=== PATIENT | female | born 1940 | race Caucasian/White ===

== ENCOUNTER 2021-08-08 15:55 | Inpatient (IN) ==
[2021-08-08] MEDS ORDERED: *HR* HYDROmorphone PF 0.5 MG/0.5 ML SYRINGE IVP PRN (17:35)
[2021-08-08] MEDS ORDERED: *HR* Metoprolol 5 MG/5 ML VIAL IVP PRN (17:35)
[2021-08-08] MEDS ORDERED: Naloxone 0.4 MG/ML INJ IVP PRN ×2 (17:35→20:12)
[2021-08-08] MEDS ORDERED: Nitroglycerin 0.4 MG TAB.SUBL SL PRN (17:35)
[2021-08-08] MEDS ORDERED: Ondansetron 4 MG/2 ML VIAL IVP PRN ×2 (17:35→20:12)
[2021-08-08] MEDS ORDERED: Albuterol 2.5 MG/3 ML NEBULIZER IH PRN (17:35)
[2021-08-08] MEDS ORDERED: *HR* FentaNYL (PF) 100 MCG/2 ML VIAL ONE (17:50)
[2021-08-08] MEDS ORDERED: *HR* Propofol 200 MG/20 ML VIAL IVP ONE (17:50)
[2021-08-08] MEDS ORDERED: Lidocaine -MPF 4% 5 ML AMPUL ONE (17:50)
[2021-08-08] MEDS ORDERED: *HR* Rocuronium Bromide 50 MG/5 ML VIAL ONE (17:50)
[2021-08-08] MEDS ORDERED: Ondansetron 4 MG/2 ML VIAL ONE (17:50)
[2021-08-08] MEDS ORDERED: Lidocaine -MPF 2% 2 ML VIAL ONE (17:50)
[2021-08-08] MEDS ORDERED: ALPRAZolam 0.5 MG TABLET PO PRN (18:27)
[2021-08-08] MEDS ORDERED: MetroNIDAZOLE 500 MG/100 ML 500 MG/100 ML BAG IVPB ONE (18:52)
[2021-08-08] MEDS ORDERED: Famotidine 20 MG/2 ML VIAL IVP ONE (19:03)
[2021-08-08] MEDS ORDERED: Acetaminophen IV 1,000 MG/100 ML BAG IVPB ONE ×2 (19:04)
[2021-08-08] MEDS ORDERED: *HR* HYDROMORPHONE 2 MG/ML VIAL ONE (19:43)
[2021-08-08] MEDS ORDERED: Sugammadex Sodium 200 MG/2 ML VIAL IV ONE (19:44)
[2021-08-08] MEDS ORDERED: Morphine PCA 30 MG/ 30 ML 30 ML PCA.VIAL IVC PRN (21:22)
[2021-08-08] MEDS ORDERED: 0.9 % Sodium Chloride 1,000 ML IVC ONE (21:50)
[2021-08-08] MEDS: *HR* Heparin 5,000 UNIT/ML VIAL SQ SCH (22:10)
[2021-08-08] MEDS: Acetaminophen IV 1,000 MG/100 ML BAG IVPB SCH (23:40)
[2021-08-08] MEDS: 0.9 % Sodium Chloride 1,000 ML IVC SCH (23:40)
[2021-08-09] MEDS: MetroNIDAZOLE 500 MG/100 ML 500 MG/100 ML BAG IVPB SCH ×5 (00:03→23:39)
[2021-08-09 00:52] LABS: Hematocrit 34.9 % (35.3-44.9); Hemoglobin 11.4 g/dL (11.5-15.4); Mean Corpuscular HGB Conc 32.7 g/dL (31.6-35.5); Mean Corpuscular Hemoglobin 30.8 pg (28.0-33.3); Mean Corpuscular Volume 94.3 fL (83.0-100.0); Mean Platelet Volume 9.4 fL (9.4-12.4); Platelet Count 195 K/mcL (140-400); White Blood Count 11.6 K/mcL (4.3-11.1)
[2021-08-09 01:12] LABS: Alanine Aminotransferase 16 Units/L (7-52); Albumin 2.7 g/dL (3.5-5.7); Albumin/Globulin Ratio 1.4 (1.1-2.2); Alkaline Phosphatase 38 Units/L (34-104); Aspartate Amino Transferase 22 Units/L (13-39); BUN/Creatinine Ratio 33 (6-26); Bilirubin,Total 0.4 mg/dL (0.3-1.0); Blood Urea Nitrogen 25 mg/dL (8-23); Calcium 7.4 mg/dL (8.6-10.3); Carbon Dioxide 19 mEq/L (23-29); Chloride 111 mEq/L (98-107); Globulin 1.9 g/dL (2.4-3.5); Glucose 119 mg/dL (70-105); Magnesium 1.5 mg/dL (1.6-2.6); Osmolality,Calculated 288 (280-300); Phosphorous 2.5 mg/dL (2.7-4.5); Potassium 3.8 mEq/L (3.5-5.1); Sodium 136 mEq/L (136-145); Total Protein 4.6 g/dL (6.4-8.9); eGFR For African Americans > 60 (> 60); eGFR For Non-African Americans > 60 (> 60)
[2021-08-09 01:26] LABS: Lymphocytes # 0.7 K/mcL (0.6-4.6); Neutrophils # 10.9 K/mcL (1.6-8.9); Platelet Estimate Normal (Normal)
[2021-08-09] MEDS: *HR* Heparin 5,000 UNIT/ML VIAL SQ SCH ×2 (05:19→17:33)
[2021-08-09] MEDS: Acetaminophen IV 1,000 MG/100 ML BAG IVPB SCH ×3 (05:38→18:45)
[2021-08-09] MEDS: 0.9 % Sodium Chloride 1,000 ML IVC SCH ×3 (08:24→23:41)
[2021-08-09] MEDS: levoFLOXacin 750 MG/150 ML 750 MG/150 ML BAG IVPB SCH (08:24)
[2021-08-09] MEDS: Pantoprazole 40 MG VIAL IVP SCH (08:30)
[2021-08-09] MEDS ORDERED: Naloxone 0.4 MG/ML INJ IVP PRN (08:33)
[2021-08-09] MEDS ORDERED: NON-FORMULARY MEDICATION 1 EACH EACH (Ezetimibe [Zetia] 10 MG Tablet) PO SCH (09:00)
[2021-08-09] MEDS ORDERED: levoFLOXacin 500 MG/100 ML 500 MG/100 ML BAG IVPB SCH (09:00)
[2021-08-09] MEDS ORDERED: *HR* LORazepam 2 MG/ML VIAL IVP ONE (09:32)
[2021-08-09] MEDS ORDERED: Saliva Stimulant 44.3ml BOTTLE PO PRN (09:33)
[2021-08-09] MEDS ORDERED: Chloraseptic Spray 177 ML BOTTLE MM PRN (09:33)
[2021-08-09] MEDS ORDERED: Orphenadrine 60 MG/2 ML VIAL IVP PRN (09:35)
[2021-08-09] MEDS: *HR* Metoprolol 5 MG/5 ML VIAL IVP PRN ×2 (09:46→13:01)
[2021-08-09] MEDS: *HR* LORazepam 2 MG/ML VIAL IVP PRN (09:47)
[2021-08-09] MEDS: DilTIAZem 50 MG/50 ML IV.SOLN IVC SCH ×2 (10:35→15:26)
[2021-08-09] MEDS ORDERED: Perflutren Lipid Microsphere 1.3 ML in 0.9 % Sodium Chloride 8.7 ML IVP PRN (11:50)
[2021-08-09] MEDS: Ketorolac 30 MG/ML VIAL IVP SCH ×3 (11:51→23:39)
[2021-08-09 14:05] LABS: Hematocrit 35.4 % (35.3-44.9); Hemoglobin 11.6 g/dL (11.5-15.4); Mean Corpuscular HGB Conc 32.8 g/dL (31.6-35.5); Mean Corpuscular Hemoglobin 31.4 pg (28.0-33.3); Mean Corpuscular Volume 95.9 fL (83.0-100.0); Mean Platelet Volume 9.9 fL (9.4-12.4); Platelet Count 193 K/mcL (140-400); Red Blood Count 3.69 M/mcL (3.82-4.97); Red Cell Distribution Width 14.2 % (11.5-14.5); White Blood Count 10.4 K/mcL (4.3-11.1)
[2021-08-09 14:24] LABS: Alanine Aminotransferase 17 Units/L (7-52); Albumin 2.8 g/dL (3.5-5.7); Albumin/Globulin Ratio 1.3 (1.1-2.2); Alkaline Phosphatase 50 Units/L (34-104); Aspartate Amino Transferase 18 Units/L (13-39); BUN/Creatinine Ratio 34 (6-26); Bilirubin,Total 0.3 mg/dL (0.3-1.0); Blood Urea Nitrogen 23 mg/dL (8-23); Calcium 7.7 mg/dL (8.6-10.3); Carbon Dioxide 18 mEq/L (23-29); Chloride 113 mEq/L (98-107); Globulin 2.1 g/dL (2.4-3.5); Glucose 120 mg/dL (70-105); Osmolality,Calculated 289 (280-300); Potassium 3.6 mEq/L (3.5-5.1); Sodium 137 mEq/L (136-145); Total Protein 4.9 g/dL (6.4-8.9); eGFR For African Americans > 60 (> 60); eGFR For Non-African Americans > 60 (> 60)
[2021-08-09 14:44] LABS: Lymphocytes # 0.3 K/mcL (0.6-4.6); Monocytes # 0.1 K/mcL (0.0-1.3); Neutrophils # 9.9 K/mcL (1.6-8.9)
[2021-08-09 14:45] LABS: Platelet Estimate Normal (Normal); Poikilocytosis 1+ (Not Present)
[2021-08-10] MEDS: DilTIAZem 50 MG/50 ML IV.SOLN IVC SCH (00:24)
[2021-08-10] MEDS: Acetaminophen IV 1,000 MG/100 ML BAG IVPB SCH ×4 (01:27→20:14)
[2021-08-10 03:22] LABS: Hematocrit 33.6 % (35.3-44.9); Hemoglobin 11.2 g/dL (11.5-15.4); Mean Corpuscular HGB Conc 33.3 g/dL (31.6-35.5); Mean Corpuscular Hemoglobin 30.9 pg (28.0-33.3); Mean Corpuscular Volume 92.8 fL (83.0-100.0); Mean Platelet Volume 9.9 fL (9.4-12.4); Platelet Count 191 K/mcL (140-400); Red Blood Count 3.62 M/mcL (3.82-4.97); Red Cell Distribution Width 14.2 % (11.5-14.5); White Blood Count 13.1 K/mcL (4.3-11.1)
[2021-08-10 03:40] LABS: BUN/Creatinine Ratio 37 (6-26); Blood Urea Nitrogen 23 mg/dL (8-23); Calcium 7.8 mg/dL (8.6-10.3); Carbon Dioxide 17 mEq/L (23-29); Chloride 116 mEq/L (98-107); Glucose 111 mg/dL (70-105); Magnesium 2.3 mg/dL (1.6-2.6); Osmolality,Calculated 296 (280-300); Potassium 3.3 mEq/L (3.5-5.1); Sodium 141 mEq/L (136-145); eGFR For African Americans > 60 (> 60); eGFR For Non-African Americans > 60 (> 60)
[2021-08-10] MEDS ORDERED: *HR* Metoprolol 5 MG/5 ML VIAL IVP ONE (03:50)
[2021-08-10 04:09] LABS: Lymphocytes # 1.8 K/mcL (0.6-4.6); Monocytes # 0.3 K/mcL (0.0-1.3); Platelet Estimate Normal (Normal)
[2021-08-10] MEDS: Ketorolac 30 MG/ML VIAL IVP SCH ×3 (05:42→17:48)
[2021-08-10] MEDS: *HR* Heparin 5,000 UNIT/ML VIAL SQ SCH ×2 (05:43→17:48)
[2021-08-10] MEDS: MetroNIDAZOLE 500 MG/100 ML 500 MG/100 ML BAG IVPB SCH ×3 (05:43→17:47)
[2021-08-10] MEDS: 0.9 % Sodium Chloride 1,000 ML IVC SCH (07:34)
[2021-08-10] MEDS: levoFLOXacin 750 MG/150 ML 750 MG/150 ML BAG IVPB SCH (09:28)
[2021-08-10] MEDS: Pantoprazole 40 MG VIAL IVP SCH (09:28)
[2021-08-10] MEDS: Sodium Bicarbonate 75 MEQ in 0.45 % Sodium Chloride 1,000 ML IVC SCH (11:10)
[2021-08-10] MEDS: *HR* Metoprolol 5 MG/5 ML VIAL IVP PRN (12:52)
[2021-08-10] MEDS: *HR* Metoprolol 5 MG/5 ML VIAL IVP SCH ×2 (15:55→20:15)
[2021-08-10] MEDS: Ondansetron 4 MG/2 ML VIAL IVP PRN (16:46)
[2021-08-11] MEDS: Ketorolac 30 MG/ML VIAL IVP SCH ×5 (00:11→23:47)
[2021-08-11] MEDS: Ondansetron 4 MG/2 ML VIAL IVP PRN (00:11)
[2021-08-11] MEDS: *HR* Metoprolol 5 MG/5 ML VIAL IVP SCH ×5 (00:11→23:47)
[2021-08-11] MEDS: Acetaminophen IV 1,000 MG/100 ML BAG IVPB SCH ×5 (00:17→23:47)
[2021-08-11] MEDS: MetroNIDAZOLE 500 MG/100 ML 500 MG/100 ML BAG IVPB SCH ×5 (00:20→23:48)
[2021-08-11] MEDS: Sodium Bicarbonate 75 MEQ in 0.45 % Sodium Chloride 1,000 ML IVC SCH ×2 (00:31→20:32)
[2021-08-11 01:38] LABS: Basophils % 0.2 %; Hematocrit 36.9 % (35.3-44.9); Hemoglobin 12.4 g/dL (11.5-15.4); Immature Granulocytes % 0.7 % (0-4); Lymphocytes # 0.6 K/mcL (0.6-4.6); Lymphocytes % 2.9 %; Mean Corpuscular HGB Conc 33.6 g/dL (31.6-35.5); Mean Corpuscular Hemoglobin 31.6 pg (28.0-33.3); Mean Corpuscular Volume 93.9 fL (83.0-100.0); Monocytes # 0.8 K/mcL (0.0-1.3); Monocytes % 4.3 %; Platelet Count 245 K/mcL (140-400); Red Blood Count 3.93 M/mcL (3.82-4.97); Red Cell Distribution Width 14.5 % (11.5-14.5); Segmented Neutrophils % 91.9 %; White Blood Count 19.6 K/mcL (4.3-11.1)
[2021-08-11 02:07] LABS: BUN/Creatinine Ratio 33 (6-26); Blood Urea Nitrogen 20 mg/dL (8-23); Carbon Dioxide 18 mEq/L (23-29); Chloride 115 mEq/L (98-107); Glucose 129 mg/dL (70-105); Magnesium 2.1 mg/dL (1.6-2.6); Osmolality,Calculated 304 (280-300); Potassium 3.1 mEq/L (3.5-5.1); Sodium 145 mEq/L (136-145); eGFR For African Americans > 60 (> 60); eGFR For Non-African Americans > 60 (> 60)
[2021-08-11] MEDS: *HR* LORazepam 2 MG/ML VIAL IVP PRN (03:49)
[2021-08-11] MEDS: *HR* Heparin 5,000 UNIT/ML VIAL SQ SCH ×2 (05:44→17:51)
[2021-08-11] MEDS: Pantoprazole 40 MG VIAL IVP SCH (07:54)
[2021-08-11] MEDS: levoFLOXacin 750 MG/150 ML 750 MG/150 ML BAG IVPB SCH (07:54)
[2021-08-11] MEDS ORDERED: Iopamidol - 370 500 ML MLS IVP ONE (08:25)
[2021-08-11 15:20] LABS: Bilirubin,Urine Negative (Negative); Blood,Urine Small (Negative); Clarity,Urine Clear (Clear); Color,Urine Light-Yellow (Yellow); Glucose,Urine (UA) Normal (Normal); Ketones,Urine 80 mg/dL (Negative); Leukocyte Esterase,Urine Negative (Negative); Nitrite,Urine Negative (Negative); PH,Urine 6.5 pH Units (5.0-8.0); Protein,Urine Trace mg/dL (Neg-Trace); Specific Gravity,Urine > 1.030 (1.010-1.025); Urobilinogen,Urine Normal (Normal)
[2021-08-12 02:13] LABS: Basophils # 0.1 K/mcL (0.0-0.2); Basophils % 0.3 %; Eosinophils % 0.1 %; Hematocrit 37.1 % (35.3-44.9); Hemoglobin 12.5 g/dL (11.5-15.4); Immature Granulocytes % 1.7 % (0-4); Lymphocytes # 0.6 K/mcL (0.6-4.6); Lymphocytes % 3.1 %; Mean Corpuscular HGB Conc 33.7 g/dL (31.6-35.5); Mean Corpuscular Hemoglobin 31.3 pg (28.0-33.3); Mean Corpuscular Volume 92.8 fL (83.0-100.0); Mean Platelet Volume 9.6 fL (9.4-12.4); Monocytes # 1.7 K/mcL (0.0-1.3); Monocytes % 8.9 %; Neutrophils # 16.7 K/mcL (1.6-8.9); Platelet Count 253 K/mcL (140-400); Red Cell Distribution Width 14.6 % (11.5-14.5); Segmented Neutrophils % 85.9 %; White Blood Count 19.4 K/mcL (4.3-11.1)
[2021-08-12 02:24] LABS: BUN/Creatinine Ratio 35 (6-26); Blood Urea Nitrogen 23 mg/dL (8-23); Carbon Dioxide 23 mEq/L (23-29); Chloride 117 mEq/L (98-107); Glucose 146 mg/dL (70-105); Osmolality,Calculated 316 (280-300); Sodium 150 mEq/L (136-145); eGFR For African Americans > 60 (> 60); eGFR For Non-African Americans > 60 (> 60)
[2021-08-12] MEDS: Acetaminophen IV 1,000 MG/100 ML BAG IVPB SCH ×3 (04:56→19:38)
[2021-08-12] MEDS: MetroNIDAZOLE 500 MG/100 ML 500 MG/100 ML BAG IVPB SCH ×3 (05:40→18:19)
[2021-08-12] MEDS: *HR* Heparin 5,000 UNIT/ML VIAL SQ SCH ×2 (05:41→18:19)
[2021-08-12] MEDS: *HR* Metoprolol 5 MG/5 ML VIAL IVP SCH ×3 (05:41→18:19)
[2021-08-12] MEDS: Ketorolac 30 MG/ML VIAL IVP SCH ×2 (05:41→11:30)
[2021-08-12] MEDS: Calcium Gluconate 1gm/50mL 1 GM/50 ML BAG IVPB SCH ×2 (05:45→06:39)
[2021-08-12] MEDS: levoFLOXacin 750 MG/150 ML 750 MG/150 ML BAG IVPB SCH (07:39)
[2021-08-12] MEDS: *HR* Metoprolol 5 MG/5 ML VIAL IVP PRN ×2 (07:40→15:00)
[2021-08-12] MEDS: Pantoprazole 40 MG VIAL IVP SCH (07:40)
[2021-08-12] MEDS: Potassium Chloride 40 MEQ in D5% in 0.45% NACL 1,000 ML IVC SCH ×2 (09:34→20:56)
[2021-08-12] MEDS ORDERED: Furosemide 20 MG/2 ML VIAL IVP ONE (12:13)
[2021-08-12] MEDS ORDERED: Furosemide 40 MG/4 ML VIAL IVP STA (12:14)
[2021-08-12] MEDS: Levalbuterol Neb 0.63 MG/3 ML IH SCH ×3 (14:12→22:46)
[2021-08-12] MEDS ORDERED: Iopamidol - 370 500 ML MLS IVP ONE (14:55)
[2021-08-12 15:00] LABS: Mixed Venous Blood pCO2 41 mmHg (44-46); Mixed Venous Blood pH 7.42 pH Units (7.34-7.36); Mixed Venous Blood pO2 45 mmHg (35-45)
[2021-08-12 16:11] LABS: Adenovirus Not Detected (Not Detect); Bordetella Pertussis Not Detected (Not Detect); Chlamydophila pneumoniae Not Detected (Not Detect); Coronavirus 229E Not Detected (Not Detect); Coronavirus HKU1 Not Detected (Not Detect); Coronavirus NL63 Not Detected (Not Detect); Coronavirus OC43 Not Detected (Not Detect); Human Metapneumovirus Not Detected (Not Detect); Human Rhinovirus/Enterovirus Not Detected (Not Detect); Influenza A Subtype 2009 H1 Not Detected (Not Detect); Influenza B Not Detected (Not Detect); Mycoplasma pneumoniae Not Detected (Not Detect); Parainfluenza Virus 1 Not Detected (Not Detect); Parainfluenza Virus 2 Not Detected (Not Detect); Parainfluenza Virus 3 Not Detected (Not Detect); Parainfluenza Virus 4 Not Detected (Not Detect); Respiratory Syncytial Virus Not Detected (Not Detect); SARS-CoV-2 Not Detected (Not Detect)
[2021-08-12] MEDS ORDERED: Amiodarone Premix 150 MG/100 ML BAG IVPB ONE ×2 (23:00→23:07)
[2021-08-12] MEDS ORDERED: Amiodarone Premix 360 MG/200 ML BAG IVC ONE (23:24)
[2021-08-12] MEDS ORDERED: 0.9 % Sodium Chloride 1,000 ML ONE (23:34)
[2021-08-13] MEDS: Acetaminophen IV 1,000 MG/100 ML BAG IVPB SCH ×5 (00:38→23:05)
[2021-08-13] MEDS: MetroNIDAZOLE 500 MG/100 ML 500 MG/100 ML BAG IVPB SCH ×4 (00:39→18:48)
[2021-08-13] MEDS: *HR* Metoprolol 5 MG/5 ML VIAL IVP SCH ×4 (00:40→17:13)
[2021-08-13 00:54] LABS: Basophils # 0.1 K/mcL (0.0-0.2); Basophils % 0.3 %; Hematocrit 36.9 % (35.3-44.9); Hemoglobin 12.3 g/dL (11.5-15.4); Immature Granulocytes % 2.4 % (0-4); Lymphocytes # 0.5 K/mcL (0.6-4.6); Lymphocytes % 3.3 %; Mean Corpuscular HGB Conc 33.3 g/dL (31.6-35.5); Mean Corpuscular Hemoglobin 30.8 pg (28.0-33.3); Mean Corpuscular Volume 92.3 fL (83.0-100.0); Mean Platelet Volume 9.7 fL (9.4-12.4); Monocytes # 1.4 K/mcL (0.0-1.3); Monocytes % 8.5 %; Nucleated Red Blood Cells 0.2 /100 WBC (0); Platelet Count 250 K/mcL (140-400); Red Cell Distribution Width 14.9 % (11.5-14.5); Segmented Neutrophils % 85.5 %; White Blood Count 16.4 K/mcL (4.3-11.1)
[2021-08-13 01:00] LABS: BUN/Creatinine Ratio 30 (6-26); Blood Urea Nitrogen 24 mg/dL (8-23); Calcium 8.2 mg/dL (8.6-10.3); Carbon Dioxide 24 mEq/L (23-29); Chloride 120 mEq/L (98-107); Glucose 143 mg/dL (70-105); Osmolality,Calculated 323 (280-300); Potassium 3.6 mEq/L (3.5-5.1); Sodium 153 mEq/L (136-145); eGFR For African Americans > 60 (> 60); eGFR For Non-African Americans > 60 (> 60)
[2021-08-13] MEDS ORDERED: Phenylephrine 20 MG in 0.9 % Sodium Chloride 250 ML IVC SCH (01:15)
[2021-08-13] MEDS: Albumin 25% 25gram/100mL 25 GM/100 ML IV.SOLN ONE (01:26)
[2021-08-13] MEDS ORDERED: Albumin Human 5% 12.5 GM/250 ML IV.SOLN IVPB ONE (01:28)
[2021-08-13] MEDS ORDERED: *HR* Metoprolol 5 MG/5 ML VIAL IVP ONE ×2 (02:09→02:10)
[2021-08-13] MEDS ORDERED: Phentolamine Mesylate 5 MG VIAL IJ ONE (02:15)
[2021-08-13] MEDS: *HR* Metoprolol 5 MG/5 ML VIAL IVP PRN ×2 (03:07→22:24)
[2021-08-13 03:12] LABS: ABG Base Excess 2 mEq/L (-2 to 3); ABG HCO3 25 mEq/L (21-27); ABG Oxygen Saturation 99 % (95-98); ABG PCO2 36 mmHg (35-45); ABG PH 7.46 pH Units (7.32-7.45); ABG PO2 130 mmHg (85-104); ABG TCO2 26 mEq/L (20-26); Blood Gas VT 450 cc
[2021-08-13] MEDS: Levalbuterol Neb 0.63 MG/3 ML IH SCH ×4 (03:16→21:49)
[2021-08-13] MEDS: Albumin 25% 25gram/100mL 25 GM/100 ML IV.SOLN IVC SCH (03:19)
[2021-08-13] MEDS ORDERED: Morphine Sulfate 2 MG/ML SYRINGE IVP ONE (03:40)
[2021-08-13 04:29] LABS: VBG Ionized Calcium 1.11 mmol/L (1.15-1.35)
[2021-08-13] MEDS ORDERED: Amiodarone Premix 360 MG/200 ML BAG IVC ONE (04:33)
[2021-08-13 04:46] LABS: Magnesium 2.2 mg/dL (1.6-2.6)
[2021-08-13 05:00] LABS: Thyroid Stimulating Hormone 2.782 mcIU/mL (0.340-5.600)
[2021-08-13 05:40] LABS: ABG Base Excess 1 mEq/L (-2 to 3); ABG HCO3 25 mEq/L (21-27); ABG Oxygen Saturation 95 % (95-98); ABG PCO2 36 mmHg (35-45); ABG PH 7.45 pH Units (7.32-7.45); ABG PO2 70 mmHg (85-104); ABG TCO2 26 mEq/L (20-26); Blood Gas VT 450 cc
[2021-08-13] MEDS: *HR* Heparin 5,000 UNIT/ML VIAL SQ SCH (05:55)
[2021-08-13] MEDS ORDERED: Ringers Solution, Lactated 500 ML ONE (07:07)
[2021-08-13] MEDS ORDERED: *HR* LORazepam 2 MG/ML VIAL IVP PRN (07:12)
[2021-08-13] MEDS ORDERED: Ondansetron 4 MG/2 ML VIAL IVP PRN (07:12)
[2021-08-13] MEDS ORDERED: Naloxone 0.4 MG/ML INJ IVP PRN (07:12)
[2021-08-13] MEDS ORDERED: Morphine PCA 30 MG/ 30 ML 30 ML PCA.VIAL IVC PRN (07:12)
[2021-08-13] MEDS ORDERED: Perflutren Lipid Microsphere 1.3 ML in 0.9 % Sodium Chloride 8.7 ML IVP PRN ×2 (07:12→07:57)
[2021-08-13] MEDS ORDERED: Chloraseptic Spray 177 ML BOTTLE MM PRN (07:12)
[2021-08-13] MEDS ORDERED: Saliva Stimulant 44.3ml BOTTLE PO PRN (07:12)
[2021-08-13] MEDS ORDERED: Orphenadrine 60 MG/2 ML VIAL IVP PRN (07:12)
[2021-08-13] MEDS ORDERED: Ringers Solution, Lactated 500 ML IVC ONE (07:13)
[2021-08-13] MEDS: Phenylephrine 20 MG in 0.9 % Sodium Chloride 250 ML IVC SCH ×5 (08:00→23:26)
[2021-08-13] MEDS: FentaNYL (PF) 1,000 MCG/100 ML IV.SOLN IVC SCH ×3 (08:07→21:50)
[2021-08-13 08:29] LABS: ABG Base Excess 2 mEq/L (-2 to 3); ABG HCO3 26 mEq/L (21-27); ABG Oxygen Saturation 97 % (95-98); ABG PCO2 39 mmHg (35-45); ABG PH 7.44 pH Units (7.32-7.45); ABG PO2 86 mmHg (85-104); ABG TCO2 27 mEq/L (20-26); Blood Gas VT 480 cc
[2021-08-13] MEDS: Norepinephrine 4 MG/254 ML IV.SOLN IVC SCH (08:44)
[2021-08-13 08:47] LABS: VBG Ionized Calcium 0.94 mmol/L (1.15-1.35)
[2021-08-13 08:47] LABS: Basophils % 0.2 %; Eosinophils % 0.1 %; Hematocrit 31.1 % (35.3-44.9); Immature Granulocytes % 2.1 % (0-4); Lymphocytes # 0.6 K/mcL (0.6-4.6); Lymphocytes % 3.7 %; Mean Corpuscular HGB Conc 33.1 g/dL (31.6-35.5); Mean Corpuscular Hemoglobin 30.8 pg (28.0-33.3); Mean Corpuscular Volume 93.1 fL (83.0-100.0); Mean Platelet Volume 9.8 fL (9.4-12.4); Monocytes # 1.1 K/mcL (0.0-1.3); Monocytes % 6.6 %; Neutrophils # 14.8 K/mcL (1.6-8.9); Nucleated Red Blood Cells 0.1 /100 WBC (0); Platelet Count 228 K/mcL (140-400); Red Blood Count 3.34 M/mcL (3.82-4.97); Red Cell Distribution Width 14.8 % (11.5-14.5); Segmented Neutrophils % 87.3 %
[2021-08-13 08:54] LABS: INR 2.6; Prothrombin Time 28.5 Seconds (9.4-12.1)
[2021-08-13 08:57] LABS: Hemoglobin 10.3 g/dL (11.5-15.4)
[2021-08-13] MEDS ORDERED: levoFLOXacin 750 MG/150 ML 750 MG/150 ML BAG IVPB SCH (09:00)
[2021-08-13 09:05] LABS: BUN/Creatinine Ratio 38 (6-26); Blood Urea Nitrogen 24 mg/dL (8-23); Calcium 6.8 mg/dL (8.6-10.3); Carbon Dioxide 24 mEq/L (23-29); Chloride 123 mEq/L (98-107); Glucose 125 mg/dL (70-105); Osmolality,Calculated 320 (280-300); Potassium 2.9 mEq/L (3.5-5.1); Sodium 152 mEq/L (136-145); eGFR For African Americans > 60 (> 60); eGFR For Non-African Americans > 60 (> 60)
[2021-08-13 09:06] LABS: Albumin 2.4 g/dL (3.5-5.7); Albumin/Globulin Ratio 1.5 (1.1-2.2); Bilirubin,Direct 0.2 mg/dL (0.0-0.2); Bilirubin,Indirect 0.2 mg/dL (0.0-1.0); Bilirubin,Total 0.4 mg/dL (0.3-1.0); Globulin 1.6 g/dL (2.4-3.5)
[2021-08-13] MEDS: Potassium Chloride 40 MEQ in D5% in 0.45% NACL 1,000 ML IVC SCH ×3 (09:08→22:19)
[2021-08-13 09:25] LABS: Platelet Estimate Normal (Normal); Toxic Granulation Present (Not Present)
[2021-08-13] MEDS: Cefepime HCl 2,000 MG in 0.9 % Sodium Chloride 10 ML IVP SCH ×2 (09:33→17:14)
[2021-08-13] MEDS: Pantoprazole 40 MG VIAL IVP SCH (09:41)
[2021-08-13] MEDS ORDERED: Fluconazole 400 MG/200 ML 400 MG/200 ML BAG IVPB SCH (09:45)
[2021-08-13] MEDS ORDERED: Calcium Gluconate 1gm/50mL 1 GM/50 ML BAG IVPB PRN (10:29)
[2021-08-13] MEDS ORDERED: Potassium Chloride 40 MEQ/200 ML BAG IVPB PRN (10:29)
[2021-08-13] MEDS ORDERED: Amiodarone Premix 360 MG/200 ML BAG IVC SCH ×2 (10:33→10:45)
[2021-08-13 11:54] LABS: ABG Base Excess 2 mEq/L (-2 to 3); ABG HCO3 27 mEq/L (21-27); ABG Oxygen Saturation 99 % (95-98); ABG PCO2 45 mmHg (35-45); ABG PH 7.39 pH Units (7.32-7.45); ABG PO2 137 mmHg (85-104); ABG TCO2 28 mEq/L (20-26); Blood Gas VT 410 cc
[2021-08-13] MEDS ORDERED: *HR* Heparin 5,000 UNIT/ML VIAL IVP PRN ×2 (11:58)
[2021-08-13] MEDS ORDERED: *HR* Heparin 5,000 UNIT/ML VIAL IVP ONE (11:58)
[2021-08-13 12:13] LABS: Glucose,Pleural Fluid 126 mg/dL (No Ref Range); LDH,Pleural Fluid 172 Units/L (No Ref Range)
[2021-08-13 12:15] LABS: RBC,Pleural Fluid < 2000 RBC/mcL
[2021-08-13 12:16] LABS: Appearance of Pleural Fl Clear (Clear)
[2021-08-13] MEDS ORDERED: D10% in Water 500 ML IVC PRN (12:48)
[2021-08-13] MEDS: Heparin 25,000UNIT/250ML 1/2NS 25,000 UNIT/250 ML IV.SOLN IVC SCH (12:55)
[2021-08-13 13:57] LABS: Basophils,Pleural Fluid 0 %; Eosinophils,Pleural Fluid 0 %
[2021-08-13] MEDS ORDERED: D5% in Water 1,000 ML IVC SCH (14:45)
[2021-08-13] MEDS ORDERED: *HR* Dextrose 50 % in Water (Syg) 50 ML SYRINGE IVP PRN (15:05)
[2021-08-13] MEDS ORDERED: Dextrose Gel 15 GM/37.5 ML TUBE PO PRN ×2 (15:05)
[2021-08-13] MEDS: D5% in Water 1,000 ML IVC SCH (15:22)
[2021-08-13 15:53] LABS: BUN/Creatinine Ratio 36 (6-26); Blood Urea Nitrogen 25 mg/dL (8-23); Calcium 11.9 mg/dL (8.6-10.3); Carbon Dioxide 27 mEq/L (23-29); Chloride 121 mEq/L (98-107); Glucose 133 mg/dL (70-105); Osmolality,Calculated 316 (280-300); Potassium 4.2 mEq/L (3.5-5.1); Sodium 150 mEq/L (136-145); Troponin I 0.05 ng/mL (< 0.04); eGFR For African Americans > 60 (> 60); eGFR For Non-African Americans > 60 (> 60)
[2021-08-13] MEDS ORDERED: Clinimix E 5%-15% SOLUTION 2,000 ML with MVI, adult with vitamin K 10 ML IVC SCH (17:00)
[2021-08-13] MEDS ORDERED: *HR* Heparin 5,000 UNIT/ML VIAL SQ SCH (18:00)
[2021-08-13] MEDS: Insulin LISPRO 300 UNITS/3 ML VIAL SUBQ SCH (20:21)
[2021-08-14] MEDS: Cefepime HCl 2,000 MG in 0.9 % Sodium Chloride 10 ML IVP SCH ×3 (00:04→20:57)
[2021-08-14] MEDS: Insulin LISPRO 300 UNITS/3 ML VIAL SUBQ SCH ×4 (00:10→17:02)
[2021-08-14] MEDS: MetroNIDAZOLE 500 MG/100 ML 500 MG/100 ML BAG IVPB SCH ×4 (00:16→16:42)
[2021-08-14] MEDS: *HR* Metoprolol 5 MG/5 ML VIAL IVP SCH ×4 (00:20→17:36)
[2021-08-14] MEDS: D5% in Water 1,000 ML IVC SCH ×3 (00:25→21:08)
[2021-08-14] MEDS: Phenylephrine 100 MG in 0.9 % Sodium Chloride 250 ML IVC SCH ×4 (01:04→19:00)
[2021-08-14] MEDS ORDERED: *HR* Metoprolol 5 MG/5 ML VIAL IVP ONE ×2 (02:43→02:46)
[2021-08-14 03:30] LABS: VBG Ionized Calcium 1.16 mmol/L (1.15-1.35)
[2021-08-14 03:35] LABS: Hematocrit 36.2 % (35.3-44.9)
[2021-08-14 03:37] LABS: Hemoglobin 11.4 g/dL (11.5-15.4); Mean Corpuscular HGB Conc 31.5 g/dL (31.6-35.5); Mean Corpuscular Hemoglobin 30.6 pg (28.0-33.3); Mean Corpuscular Volume 97.3 fL (83.0-100.0); Mean Platelet Volume 10.1 fL (9.4-12.4); Platelet Count 292 K/mcL (140-400); Red Blood Count 3.72 M/mcL (3.82-4.97); Red Cell Distribution Width 15.9 % (11.5-14.5)
[2021-08-14 03:40] LABS: White Blood Count 38.2 K/mcL (4.3-11.1)
[2021-08-14 03:53] LABS: Albumin 2.6 g/dL (3.5-5.7); Albumin/Globulin Ratio 1.1 (1.1-2.2); Bilirubin,Total 0.2 mg/dL (0.3-1.0); Calcium 7.6 mg/dL (8.6-10.3); Globulin 2.4 g/dL (2.4-3.5); Magnesium 2.7 mg/dL (1.6-2.6); Phosphorous 2.2 mg/dL (2.7-4.5); Potassium 4.6 mEq/L (3.5-5.1)
[2021-08-14] MEDS: Levalbuterol Neb 0.63 MG/3 ML IH SCH ×4 (03:58→20:42)
[2021-08-14 04:06] LABS: ABG Base Excess -5 mEq/L (-2 to 3); ABG HCO3 23 mEq/L (21-27); ABG Oxygen Saturation 96 % (95-98); ABG PCO2 55 mmHg (35-45); ABG PH 7.23 pH Units (7.32-7.45); ABG PO2 100 mmHg (85-104); ABG TCO2 25 mEq/L (20-26); Blood Gas VT 410 cc
[2021-08-14] MEDS ORDERED: Albumin Human 5% 12.5 GM/250 ML IV.SOLN IVPB ONE (04:28)
[2021-08-14] MEDS ORDERED: Albumin Human 5% 12.5 GM/250 ML IV.SOLN ONE (04:30)
[2021-08-14] MEDS: FentaNYL (PF) 1,000 MCG/100 ML IV.SOLN IVC SCH ×3 (05:04→17:23)
[2021-08-14] MEDS: Acetaminophen IV 1,000 MG/100 ML BAG IVPB SCH ×3 (05:21→17:47)
[2021-08-14 05:36] LABS: ABG Base Excess -5 mEq/L (-2 to 3); ABG HCO3 23 mEq/L (21-27); ABG Oxygen Saturation 94 % (95-98); ABG PCO2 49 mmHg (35-45); ABG PH 7.27 pH Units (7.32-7.45); ABG PO2 83 mmHg (85-104); ABG TCO2 24 mEq/L (20-26); Blood Gas VT 410 cc
[2021-08-14] MEDS: Norepinephrine 4 MG/254 ML IV.SOLN IVC SCH (07:25)
[2021-08-14] MEDS ORDERED: Lidocaine -MPF 1% 5 ML AMPUL ONE (07:46)
[2021-08-14] MEDS ORDERED: Lidocaine/EPI 1:100k 1% 20 ML VIAL INFILT ONE ×2 (07:48→08:00)
[2021-08-14] MEDS: Micafungin 100 MG in 0.9 % Sodium Chloride Mini Bag 100 ML IVPB SCH (08:19)
[2021-08-14] MEDS: Heparin 25,000UNIT/250ML 1/2NS 25,000 UNIT/250 ML IV.SOLN IVC SCH ×2 (08:20→13:59)
[2021-08-14] MEDS: Pantoprazole 40 MG VIAL IVP SCH (08:20)
[2021-08-14] MEDS ORDERED: Artificial Tears SOLN 15 ML BOTTLE BOTH EYES PRN (10:19)
[2021-08-14 10:37] LABS: ABG Base Excess -5 mEq/L (-2 to 3); ABG HCO3 23 mEq/L (21-27); ABG Oxygen Saturation 85 % (95-98); ABG PCO2 54 mmHg (35-45); ABG PH 7.24 pH Units (7.32-7.45); ABG PO2 60 mmHg (85-104); ABG TCO2 24 mEq/L (20-26); Blood Gas VT 410 cc
[2021-08-14] MEDS: Chlorhexidine Rinse 15 ML MOUTHWASH MM SCH ×2 (10:49→20:58)
[2021-08-14] MEDS: Artificial Tears SOLN 15 ML BOTTLE BOTH EYES SCH ×3 (11:12→20:58)
[2021-08-14] MEDS: Vancomycin 1,250 MG/262.5 ML IV.SOLN IVPB SCH (11:12)
[2021-08-14] MEDS ORDERED: Clinimix E 5%-15% SOLUTION 2,000 ML with MVI, adult with vitamin K 10 ML IV SCH (17:00)
[2021-08-14 20:30] LABS: ABG Base Excess -5 mEq/L (-2 to 3); ABG HCO3 23 mEq/L (21-27); ABG Oxygen Saturation 88 % (95-98); ABG PCO2 62 mmHg (35-45); ABG PH 7.19 pH Units (7.32-7.45); ABG PO2 69 mmHg (85-104); ABG TCO2 25 mEq/L (20-26); Blood Gas VT 410 cc
[2021-08-15] MEDS: Artificial Tears SOLN 15 ML BOTTLE BOTH EYES SCH ×7 (00:11→23:32)
[2021-08-15] MEDS: *HR* Metoprolol 5 MG/5 ML VIAL IVP SCH ×5 (00:11→23:39)
[2021-08-15] MEDS: MetroNIDAZOLE 500 MG/100 ML 500 MG/100 ML BAG IVPB SCH ×5 (00:13→23:39)
[2021-08-15] MEDS: FentaNYL (PF) 1,000 MCG/100 ML IV.SOLN IVC SCH ×4 (00:29→22:03)
[2021-08-15] MEDS: Insulin LISPRO 300 UNITS/3 ML VIAL SUBQ SCH ×5 (00:44→23:32)
[2021-08-15] MEDS: Acetaminophen IV 1,000 MG/100 ML BAG IVPB SCH ×2 (00:51→06:25)
[2021-08-15] MEDS ORDERED: Furosemide 20 MG/2 ML VIAL IVP ONE ×2 (00:53→02:43)
[2021-08-15 00:58] LABS: ABG Base Excess -6 mEq/L (-2 to 3); ABG HCO3 21 mEq/L (21-27); ABG Oxygen Saturation 83 % (95-98); ABG PCO2 47 mmHg (35-45); ABG PH 7.26 pH Units (7.32-7.45); ABG PO2 55 mmHg (85-104); ABG TCO2 23 mEq/L (20-26); Blood Gas VT 410 cc
[2021-08-15] MEDS: Phenylephrine 100 MG in 0.9 % Sodium Chloride 250 ML IVC SCH ×6 (03:37→23:30)
[2021-08-15] MEDS: Levalbuterol Neb 0.63 MG/3 ML IH SCH ×4 (03:45→21:47)
[2021-08-15 03:59] LABS: ABG Base Excess -5 mEq/L (-2 to 3); ABG HCO3 22 mEq/L (21-27); ABG Oxygen Saturation 80 % (95-98); ABG PCO2 46 mmHg (35-45); ABG PH 7.28 pH Units (7.32-7.45); ABG PO2 50 mmHg (85-104); ABG TCO2 23 mEq/L (20-26); Blood Gas VT 410 cc
[2021-08-15 04:35] LABS: Hemoglobin 11.1 g/dL (11.5-15.4); Immature Granulocytes % 2.6 % (0-4); Nucleated Red Blood Cells 0.3 /100 WBC (0); Segmented Neutrophils % 91.1 %
[2021-08-15 04:37] LABS: Eosinophils # 0.5 K/mcL (0.0-0.6); Eosinophils % 1.1 %; Hematocrit 35.8 % (35.3-44.9); Lymphocytes # 1.5 K/mcL (0.6-4.6); Lymphocytes % 3.4 %; Mean Corpuscular Hemoglobin 31.1 pg (28.0-33.3); Mean Corpuscular Volume 100.3 fL (83.0-100.0); Mean Platelet Volume 10.6 fL (9.4-12.4); Monocytes # 0.8 K/mcL (0.0-1.3); Monocytes % 1.8 %; Neutrophils # 39.5 K/mcL (1.6-8.9); Platelet Count 251 K/mcL (140-400); Red Blood Count 3.57 M/mcL (3.82-4.97); Red Cell Distribution Width 16.9 % (11.5-14.5)
[2021-08-15 04:40] LABS: White Blood Count 43.4 K/mcL (4.3-11.1)
[2021-08-15 04:59] LABS: Platelet Estimate Normal (Normal)
[2021-08-15] MEDS: D5% in Water 1,000 ML IVC SCH (06:13)
[2021-08-15 06:35] LABS: ABG Base Excess -5 mEq/L (-2 to 3); ABG HCO3 21 mEq/L (21-27); ABG Oxygen Saturation 90 % (95-98); ABG PCO2 40 mmHg (35-45); ABG PH 7.32 pH Units (7.32-7.45); ABG PO2 63 mmHg (85-104); ABG TCO2 22 mEq/L (20-26); Blood Gas VT 410 cc
[2021-08-15 09:02] LABS: Calcium 7.6 mg/dL (8.6-10.3); Potassium 4.1 mEq/L (3.5-5.1)
[2021-08-15] MEDS: Pantoprazole 40 MG VIAL IVP SCH (09:20)
[2021-08-15] MEDS: Cefepime HCl 2,000 MG in 0.9 % Sodium Chloride 10 ML IVP SCH ×2 (09:20→20:33)
[2021-08-15] MEDS: Micafungin 100 MG in 0.9 % Sodium Chloride Mini Bag 100 ML IVPB SCH (09:21)
[2021-08-15] MEDS: Chlorhexidine Rinse 15 ML MOUTHWASH MM SCH ×2 (09:21→20:34)
[2021-08-15] MEDS: Vancomycin 1,250 MG/262.5 ML IV.SOLN IVPB SCH (12:47)
[2021-08-15 13:40] LABS: Total Protein,Pleural Fluid < 2.0 g/dL
[2021-08-15] MEDS ORDERED: Clinimix E 5%-15% SOLUTION 2,000 ML with MVI, adult with vitamin K 10 ML IVC SCH (17:00)
[2021-08-15] MEDS: Heparin 25,000UNIT/250ML 1/2NS 25,000 UNIT/250 ML IV.SOLN IVC SCH (18:10)
[2021-08-15] MEDS ORDERED: Albumin 25% 25gram/100mL 25 GM/100 ML IV.SOLN IVPB ONE (19:12)
[2021-08-15] MEDS: Vasopressin 40 UNIT in D5% in Water 100 ML IVC SCH (19:57)
[2021-08-16] MEDS: Levalbuterol Neb 0.63 MG/3 ML IH SCH ×5 (00:13→22:00)
[2021-08-16] MEDS: MetroNIDAZOLE 500 MG/100 ML 500 MG/100 ML BAG IVPB SCH ×4 (02:48→22:43)
[2021-08-16] MEDS: Phenylephrine 100 MG in 0.9 % Sodium Chloride 250 ML IVC SCH ×4 (03:19→19:57)
[2021-08-16] MEDS: Artificial Tears SOLN 15 ML BOTTLE BOTH EYES SCH ×5 (04:27→19:24)
[2021-08-16 04:30] LABS: Hemoglobin 10.6 g/dL (11.5-15.4); Mean Corpuscular Hemoglobin 31.3 pg (28.0-33.3); Red Blood Count 3.39 M/mcL (3.82-4.97); Red Cell Distribution Width 17.4 % (11.5-14.5)
[2021-08-16 04:31] LABS: Hematocrit 34.7 % (35.3-44.9); Lymphocytes # 1.5 K/mcL (0.6-4.6); Mean Corpuscular HGB Conc 30.5 g/dL (31.6-35.5); Mean Corpuscular Volume 102.4 fL (83.0-100.0); Mean Platelet Volume 11.1 fL (9.4-12.4); Nucleated Red Blood Cells 0.2 /100 WBC (0); Platelet Count 202 K/mcL (140-400)
[2021-08-16 04:40] LABS: White Blood Count 36.6 K/mcL (4.3-11.1)
[2021-08-16 04:45] LABS: ABG Base Excess -8 mEq/L (-2 to 3); ABG HCO3 20 mEq/L (21-27); ABG Oxygen Saturation 96 % (95-98); ABG PCO2 48 mmHg (35-45); ABG PH 7.22 pH Units (7.32-7.45); ABG PO2 96 mmHg (85-104); ABG TCO2 21 mEq/L (20-26); Blood Gas VT 410 cc
[2021-08-16 04:50] LABS: Albumin 2.6 g/dL (3.5-5.7); Albumin/Globulin Ratio 1.1 (1.1-2.2); Bilirubin,Total 0.3 mg/dL (0.3-1.0); Calcium 7.5 mg/dL (8.6-10.3); Globulin 2.3 g/dL (2.4-3.5); Magnesium 2.1 mg/dL (1.6-2.6); Phosphorous 2.6 mg/dL (2.7-4.5); Potassium 4.2 mEq/L (3.5-5.1); Total Protein 4.9 g/dL (6.4-8.9)
[2021-08-16] MEDS: Insulin LISPRO 300 UNITS/3 ML VIAL SUBQ SCH ×3 (04:51→17:00)
[2021-08-16] MEDS: *HR* Metoprolol 5 MG/5 ML VIAL IVP SCH ×3 (04:52→17:01)
[2021-08-16] MEDS: FentaNYL (PF) 1,000 MCG/100 ML IV.SOLN IVC SCH ×4 (05:24→21:46)
[2021-08-16 05:28] LABS: Monocytes # 0.7 K/mcL (0.0-1.3); Neutrophils # 34.4 K/mcL (1.6-8.9)
[2021-08-16 05:29] LABS: Platelet Estimate Normal (Normal)
[2021-08-16] MEDS: Chlorhexidine Rinse 15 ML MOUTHWASH MM SCH ×2 (07:28→19:40)
[2021-08-16] MEDS: Cefepime HCl 2,000 MG in 0.9 % Sodium Chloride 10 ML IVP SCH ×2 (07:29→19:39)
[2021-08-16] MEDS: Micafungin 100 MG in 0.9 % Sodium Chloride Mini Bag 100 ML IVPB SCH (07:29)
[2021-08-16] MEDS: Pantoprazole 40 MG VIAL IVP SCH (07:29)
[2021-08-16] MEDS: Vancomycin 1,250 MG/262.5 ML IV.SOLN IVPB SCH (12:20)
[2021-08-16] MEDS: Vasopressin 40 UNIT in D5% in Water 100 ML IVC SCH (12:39)
[2021-08-16] MEDS: *HR* Heparin 5,000 UNIT/ML VIAL SQ SCH ×2 (14:25→19:41)
[2021-08-16] MEDS ORDERED: Clinimix E 5%-15% SOLUTION 2,000 ML with MVI, adult with vitamin K 10 ML IVC SCH (17:00)
[2021-08-16 17:11] LABS: VBG Ionized Calcium 1.15 mmol/L (1.15-1.35)
[2021-08-16] MEDS ORDERED: Potassium Phosphate 44 MEQ in 0.9 % Sodium Chloride 250 ML IVPB ONE (17:25)
[2021-08-16] MEDS ORDERED: Albumin 25% 25gram/100mL 25 GM/100 ML IV.SOLN IVPB ONE (20:34)
[2021-08-16] MEDS: Albumin 25% 25gram/100mL 25 GM/100 ML IV.SOLN ONE (20:44)
[2021-08-16] MEDS: Norepinephrine 4 MG/254 ML IV.SOLN IVC SCH (22:05)
[2021-08-16 22:32] LABS: ABG Base Excess -9 mEq/L (-2 to 3); ABG HCO3 19 mEq/L (21-27); ABG Oxygen Saturation 85 % (95-98); ABG PCO2 53 mmHg (35-45); ABG PH 7.17 pH Units (7.32-7.45); ABG PO2 63 mmHg (85-104); ABG TCO2 21 mEq/L (20-26); Blood Gas Modality ASSIST CONTROL; Blood Gas VT 410 cc
[2021-08-17] MEDS: Artificial Tears SOLN 15 ML BOTTLE BOTH EYES SCH ×7 (00:33→23:12)
[2021-08-17] MEDS: Insulin LISPRO 300 UNITS/3 ML VIAL SUBQ SCH ×4 (00:33→16:14)
[2021-08-17] MEDS: *HR* Metoprolol 5 MG/5 ML VIAL IVP SCH ×5 (00:34→23:13)
[2021-08-17] MEDS: Phenylephrine 100 MG in 0.9 % Sodium Chloride 250 ML IVC SCH ×5 (00:37→19:55)
[2021-08-17 01:00] LABS: ABG Base Excess -8 mEq/L (-2 to 3); ABG HCO3 19 mEq/L (21-27); ABG Oxygen Saturation 87 % (95-98); ABG PCO2 43 mmHg (35-45); ABG PH 7.25 pH Units (7.32-7.45); ABG PO2 61 mmHg (85-104); ABG TCO2 20 mEq/L (20-26); Blood Gas Modality ASSIST CONTROL; Blood Gas VT 450 cc
[2021-08-17] MEDS: Sodium Bicarbonate 50 MEQ in 0.45 % Sodium Chloride 1,000 ML IVC SCH ×3 (02:08→23:09)
[2021-08-17 03:22] LABS: Basophils % 0.4 %; Lymphocytes % 2.1 %; Mean Corpuscular Volume 101.2 fL (83.0-100.0); Mean Platelet Volume 11.2 fL (9.4-12.4); Red Cell Distribution Width 17.4 % (11.5-14.5)
[2021-08-17 03:23] LABS: Basophils # 0.1 K/mcL (0.0-0.2); Eosinophils # 0.4 K/mcL (0.0-0.6); Eosinophils % 1.1 %; Hematocrit 33.3 % (35.3-44.9); Hemoglobin 10.1 g/dL (11.5-15.4); Immature Granulocytes % 2.8 % (0-4); Lymphocytes # 0.7 K/mcL (0.6-4.6); Mean Corpuscular HGB Conc 30.3 g/dL (31.6-35.5); Mean Corpuscular Hemoglobin 30.7 pg (28.0-33.3); Monocytes # 0.8 K/mcL (0.0-1.3); Monocytes % 2.4 %; Neutrophils # 28.8 K/mcL (1.6-8.9); Nucleated Red Blood Cells 0.1 /100 WBC (0); Platelet Count 161 K/mcL (140-400); Red Blood Count 3.29 M/mcL (3.82-4.97); Segmented Neutrophils % 91.2 %
[2021-08-17 03:28] LABS: White Blood Count 31.6 K/mcL (4.3-11.1)
[2021-08-17 03:42] LABS: Calcium 7.3 mg/dL (8.6-10.3); Potassium 3.9 mEq/L (3.5-5.1)
[2021-08-17 04:21] LABS: Platelet Estimate Normal (Normal)
[2021-08-17] MEDS: Levalbuterol Neb 0.63 MG/3 ML IH SCH ×5 (05:00→22:03)
[2021-08-17 05:09] LABS: ABG Base Excess -8 mEq/L (-2 to 3); ABG HCO3 20 mEq/L (21-27); ABG Oxygen Saturation 95 % (95-98); ABG PCO2 47 mmHg (35-45); ABG PH 7.23 pH Units (7.32-7.45); ABG PO2 87 mmHg (85-104); ABG TCO2 21 mEq/L (20-26); Blood Gas Modality ASSIST CONTROL; Blood Gas VT 450 cc
[2021-08-17] MEDS: FentaNYL (PF) 1,000 MCG/100 ML IV.SOLN IVC SCH ×3 (05:09→20:01)
[2021-08-17] MEDS: *HR* Heparin 5,000 UNIT/ML VIAL SQ SCH ×3 (05:13→19:56)
[2021-08-17] MEDS: MetroNIDAZOLE 500 MG/100 ML 500 MG/100 ML BAG IVPB SCH ×4 (05:19→23:51)
[2021-08-17 06:36] LABS: Albumin 2.4 g/dL (3.5-5.7); Albumin/Globulin Ratio 1.1 (1.1-2.2); Bilirubin,Total 0.5 mg/dL (0.3-1.0); Globulin 2.2 g/dL (2.4-3.5); Magnesium 1.9 mg/dL (1.6-2.6); Phosphorous 3.6 mg/dL (2.7-4.5); Total Protein 4.6 g/dL (6.4-8.9)
[2021-08-17] MEDS: Chlorhexidine Rinse 15 ML MOUTHWASH MM SCH ×2 (07:30→19:46)
[2021-08-17] MEDS: Pantoprazole 40 MG VIAL IVP SCH (07:31)
[2021-08-17] MEDS: Cefepime HCl 2,000 MG in 0.9 % Sodium Chloride 10 ML IVP SCH ×2 (07:31→19:46)
[2021-08-17] MEDS: Norepinephrine 4 MG/254 ML IV.SOLN IVC SCH (11:24)
[2021-08-17] MEDS: Vancomycin 1,250 MG/262.5 ML IV.SOLN IVPB SCH (11:24)
[2021-08-17] MEDS ORDERED: Vancomycin 500 MG in 0.9 % Sodium Chloride 250 ML IVPB ONE (13:00)
[2021-08-17] MEDS: Vasopressin 40 UNIT in D5% in Water 100 ML IVC SCH (13:58)
[2021-08-17] MEDS ORDERED: Albumin 25% 25gram/100mL 25 GM/100 ML IV.SOLN IVPB ONE (14:51)
[2021-08-17] MEDS ORDERED: Albumin 25% 25gram/100mL 25 GM/100 ML IV.SOLN ONE (14:52)
[2021-08-17 15:56] LABS: ABG Base Excess -8 mEq/L (-2 to 3); ABG HCO3 20 mEq/L (21-27); ABG Oxygen Saturation 82 % (95-98); ABG PCO2 51 mmHg (35-45); ABG PO2 57 mmHg (85-104); ABG TCO2 21 mEq/L (20-26); Blood Gas Modality ASSIST CONTROL; Blood Gas VT 450 cc
[2021-08-17] MEDS ORDERED: Furosemide 40 MG/4 ML VIAL IVP ONE (16:08)
[2021-08-17] MEDS ORDERED: Clinimix E 5%-15% SOLUTION 2,000 ML with MVI, adult with vitamin K 10 ML IVC SCH (17:00)
[2021-08-18] MEDS: Insulin LISPRO 300 UNITS/3 ML VIAL SUBQ SCH ×5 (00:09→23:54)
[2021-08-18] MEDS: Phenylephrine 100 MG in 0.9 % Sodium Chloride 250 ML IVC SCH ×5 (00:39→20:27)
[2021-08-18] MEDS: FentaNYL (PF) 1,000 MCG/100 ML IV.SOLN IVC SCH ×4 (03:08→22:55)
[2021-08-18] MEDS: Artificial Tears SOLN 15 ML BOTTLE BOTH EYES SCH ×6 (03:40→23:10)
[2021-08-18 04:15] LABS: Basophils % 0.5 %; Immature Granulocytes % 5.9 % (0-4); Red Cell Distribution Width 17.7 % (11.5-14.5)
[2021-08-18 04:16] LABS: Basophils # 0.1 K/mcL (0.0-0.2); Eosinophils # 0.2 K/mcL (0.0-0.6); Eosinophils % 0.8 %; Hematocrit 31.6 % (35.3-44.9); Hemoglobin 9.6 g/dL (11.5-15.4); Lymphocytes # 0.6 K/mcL (0.6-4.6); Lymphocytes % 2.1 %; Mean Corpuscular HGB Conc 30.4 g/dL (31.6-35.5); Mean Corpuscular Hemoglobin 30.4 pg (28.0-33.3); Mean Platelet Volume 12.1 fL (9.4-12.4); Monocytes % 2.5 %; Nucleated Red Blood Cells 0.3 /100 WBC (0); Platelet Count 137 K/mcL (140-400); Red Blood Count 3.16 M/mcL (3.82-4.97); Segmented Neutrophils % 88.2 %; White Blood Count 26.1 K/mcL (4.3-11.1)
[2021-08-18 04:18] LABS: Monocytes # 0.7 K/mcL (0.0-1.3)
[2021-08-18 04:31] LABS: Albumin 2.3 g/dL (3.5-5.7); Bilirubin,Total 0.8 mg/dL (0.3-1.0); Calcium 7.3 mg/dL (8.6-10.3); Globulin 2.4 g/dL (2.4-3.5); Magnesium 1.8 mg/dL (1.6-2.6); Phosphorous 3.6 mg/dL (2.7-4.5); Potassium 3.6 mEq/L (3.5-5.1); Total Protein 4.7 g/dL (6.4-8.9)
[2021-08-18 04:49] LABS: Anisocytosis 1+ (Not Present); Platelet Estimate Normal (Normal)
[2021-08-18] MEDS: Levalbuterol Neb 0.63 MG/3 ML IH SCH ×4 (05:03→21:55)
[2021-08-18] MEDS: MetroNIDAZOLE 500 MG/100 ML 500 MG/100 ML BAG IVPB SCH ×4 (05:27→23:12)
[2021-08-18] MEDS: *HR* Heparin 5,000 UNIT/ML VIAL SQ SCH ×3 (05:27→19:39)
[2021-08-18 05:30] LABS: ABG Base Excess -9 mEq/L (-2 to 3); ABG HCO3 20 mEq/L (21-27); ABG Oxygen Saturation 94 % (95-98); ABG PCO2 55 mmHg (35-45); ABG PH 7.18 pH Units (7.32-7.45); ABG PO2 90 mmHg (85-104); ABG TCO2 22 mEq/L (20-26); Blood Gas Modality ASSIST CONTROL; Blood Gas VT 450 cc
[2021-08-18] MEDS: *HR* Metoprolol 5 MG/5 ML VIAL IVP SCH ×3 (05:32→16:45)
[2021-08-18] MEDS ORDERED: Potassium Phosphate 44 MEQ in 0.9 % Sodium Chloride 250 ML IVPB ONE (07:09)
[2021-08-18] MEDS: *HR* Metoprolol 5 MG/5 ML VIAL IVP PRN (07:21)
[2021-08-18] MEDS: Cefepime HCl 2,000 MG in 0.9 % Sodium Chloride 10 ML IVP SCH ×2 (07:21→19:38)
[2021-08-18] MEDS: Chlorhexidine Rinse 15 ML MOUTHWASH MM SCH ×2 (07:21→19:39)
[2021-08-18] MEDS: Pantoprazole 40 MG VIAL IVP SCH (07:21)
[2021-08-18] MEDS: Norepinephrine 4 MG/254 ML IV.SOLN IVC SCH ×2 (07:22→11:44)
[2021-08-18] MEDS: Furosemide 40 MG/4 ML VIAL IVP SCH ×2 (07:44→16:45)
[2021-08-18] MEDS ORDERED: Amiodarone Premix 150 MG/100 ML BAG IVPB ONE (11:00)
[2021-08-18] MEDS ORDERED: Amiodarone 450 MG in 0.9 % Sodium Chloride Excel Bg 241 ML IVC SCH (11:00)
[2021-08-18] MEDS ORDERED: Vancomycin 1,750 MG/517.5 ML IV.SOLN IVPB SCH (11:00)
[2021-08-18] MEDS ORDERED: Amiodarone Premix 360 MG/200 ML BAG IVC ONE (11:10)
[2021-08-18] MEDS: Sodium Bicarbonate 50 MEQ in 0.45 % Sodium Chloride 1,000 ML IVC SCH ×2 (11:18→22:35)
[2021-08-18] MEDS: Vasopressin 40 UNIT in D5% in Water 100 ML IVC SCH (13:54)
[2021-08-18] MEDS ORDERED: Clinimix E 5%-15% SOLUTION 2,000 ML with MVI, adult with vitamin K 10 ML IVC SCH (17:00)
[2021-08-18] MEDS ORDERED: Amiodarone Premix 360 MG/200 ML BAG IVC SCH (17:10)
[2021-08-18 20:56] LABS: ABG Base Excess -9 mEq/L (-2 to 3); ABG HCO3 20 mEq/L (21-27); ABG Oxygen Saturation 86 % (95-98); ABG PCO2 60 mmHg (35-45); ABG PH 7.13 pH Units (7.32-7.45); ABG PO2 67 mmHg (85-104); ABG TCO2 22 mEq/L (20-26); Blood Gas VT 450 cc
[2021-08-18 23:52] LABS: ABG Base Excess -10 mEq/L (-2 to 3); ABG HCO3 20 mEq/L (21-27); ABG Oxygen Saturation 82 % (95-98); ABG PCO2 58 mmHg (35-45); ABG PH 7.14 pH Units (7.32-7.45); ABG PO2 62 mmHg (85-104); ABG TCO2 21 mEq/L (20-26); Blood Gas VT 480 cc
[2021-08-19 00:17] VITALS: TEMP 99.6
[2021-08-19] MEDS: Phenylephrine 100 MG in 0.9 % Sodium Chloride 250 ML IVC SCH (00:17)
[2021-08-19] MEDS: *HR* Metoprolol 5 MG/5 ML VIAL IVP SCH (00:55)
[2021-08-19 03:45] VITALS: BP 84/49; PULSE 122
[2021-08-19] MEDS: Levalbuterol Neb 0.63 MG/3 ML IH SCH (04:01)
[2021-08-19 04:03] VITALS: O2SAT 92
[2021-08-19 04:05] LABS: ABG Base Excess -9 mEq/L (-2 to 3); ABG HCO3 21 mEq/L (21-27); ABG Oxygen Saturation 92 % (95-98); ABG PCO2 64 mmHg (35-45); ABG PH 7.12 pH Units (7.32-7.45); ABG PO2 84 mmHg (85-104); ABG TCO2 23 mEq/L (20-26); Blood Gas VT 480 cc
[2021-08-19] MEDS ORDERED: Atropine Sulfate 1% 40 DROP/2 ML BOTTLE SL PRN (04:10)
[2021-08-19] MEDS ORDERED: Scopolamine Patch 1.5 MG PATCH.TD72 TD SCH (05:00)
== END 2021-08-19 04:38 | disposition expired | DRG 853 ==
LOC: 3ANU → SUATTDRO 22:25 → 2NENU 08-09 12:22 → 2NNU 08-12 17:21 → ICNU 08-13 02:55
PROVIDERS: ADMIT Internal Medicine; ATTEND Hospitalist